=== PATIENT | male | born 1970 | race Two or more races ===

== ENCOUNTER 2017-07-20 14:46 | Emergency (ER) | payer OTHER ==
[~2017-07-20] VITALS: Ht 182.9 cm; Wt 154.2 kg
[2017-07-20 15:00] VITALS: BP 143/89
== END 2017-07-20 15:42 | disposition home or self-care (01) ==
LOC: ER 14:49
DX: E11.9 Type 2 diabetes mellitus without complications (principal)
CPT/HCPCS: 82962; 99282; A4606; Z7610